=== PATIENT | female | born 1965 | race Caucasian/White ===

== ENCOUNTER 2017-09-26 11:23 | Inpatient (IN) | payer BC ==
[2017-08-29 14:42] VITALS: BMI 25.0
[2017-08-29 14:59] LABS: BASO % 0.5 %; BASO ABS # 0.03 K/uL (0-0.2); EOS % 0.6 %; EOS ABS # 0.04 K/uL (0-0.5); HEMATOCRIT 42.2 % (37-47); HEMOGLOBIN 14.7 g/dL (12.0-16.0); IG# 0.01 K/uL (0.00-0.02); LYMPH % 28.2 %; LYMPH ABS # 1.85 K/uL (1.2-3.4); MEAN CELL VOLUME 104.2 fL (80-100); MEAN CORPUSCULAR HEMOGLOBIN 36.3 pg (25-34); MEAN CORPUSCULAR HGB CONC 34.8 g/dl (32-36); MEAN PLATELET VOLUME 9.3 fL (7.4-10.4); MONO % 9.9 %; MONO ABS # 0.65 K/uL (0.11-0.59); NEUT % 60.6 %; NEUT ABS # 3.98 K/uL (1.4-6.5); PLATELET COUNT 263 K/uL (130-400); RED CELL DISTRIBUTION WIDTH CV 14.8 % (11.5-14.5); RED CELL DISTRIBUTION WIDTH SD 56.3 fL (36.4-46.3); WHITE BLOOD COUNT 6.56 K/uL (4.8-10.8)
--- NOTE | 2017-08-29 15:34 | PAT Medication Instructions ---
Service Date Aug 29, 2017. Current Home Medication List Albuterol Hfa (Ventolin Hfa), 2 PUFFS INH Q6H PRN for PRN Betamethasone Dip Aug 0.05% (Diprolene 0.05%), 1 DOSE TOP PRN Cabergoline (Cabergoline), 0.5 TAB PO 2XWEEK Calcium Carbonate-Vitamin D (Calcium + D), 1 TAB PO BID Ergocalciferol (Vitamin D 01034 Unit), 50,000 UNIT PO WK Ferrous Sulfate (Kp Ferrous Sulfate), 1 TAB PO BID Levothyroxine Sodium (Levothyroxine Sodium), 1 TAB PO QAM Omeprazole (Prilosec), 40 MG PO QAM Tramadol (Ultram), 50 MG PO Q6H [Vitamin B12], 1 DOSE INJ MONTHLY Medication Instructions For Your Scheduled Surgery -Contact your prescriber for instructions for: Cabergoline (Cabergoline), 0.5 TAB PO 2XWEEK -Continue as directed: Ergocalciferol (Vitamin D 29311 Unit), 50,000 UNIT PO WK [Vitamin B12], 1 DOSE INJ MONTHLY - Hold the following medications 24 hours prior to surgery: Betamethasone Dip Aug 0.05% (Diprolene 0.05%), 1 DOSE TOP PRN - Hold the following medications the morning of surgery: Ferrous Sulfate ( Ferrous Sulfate), 1 TAB PO BID Calcium Carbonate-Vitamin D (Calcium + D), 1 TAB PO BID - Take the following medications the morning of surgery with a sip of water: Levothyroxine Sodium (Levothyroxine Sodium), 1 TAB PO QAM Omeprazole (Prilosec), 40 MG PO QAM Albuterol Hfa (Ventolin Hfa), 2 PUFFS INH Q6H PRN for PRN (if needed, and bring it with you the morning of the surgery) Tramadol (Ultram), 50 MG PO Q6H (if needed can be taken up to four hours before surgery) - Take the following medications as scheduled the night before surgery: Calcium Carbonate-Vitamin D (Calcium + D), 1 TAB PO BID Tramadol (Ultram), 50 MG PO Q6H Albuterol Hfa (Ventolin Hfa), 2 PUFFS INH Q6H PRN for PRN (if needed) Ferrous Sulfate (Kp Ferrous Sulfate), 1 TAB PO BID If you have any questions please call us at [phone] or [phone] or [phone]
--- NOTE | 2017-08-29 15:55 | DIAGNOSTIC IMAGING REPORT ---
CHEST 2 VIEWS ROUTINE HISTORY: 52 years-old Female PAT preoperative exam. No acute chest complaints. COMPARISON: None available TECHNIQUE: PA and lateral views of the chest FINDINGS: Cardiomediastinal and hilar silhouettes are within normal limits. There is no pneumothorax, pleural effusion, focal airspace consolidation or overt pulmonary edema. The bones of the chest appear grossly intact. IMPRESSION: No acute process. The above report was generated using voice recognition software. It may contain grammatical, syntax or spelling errors. Electronically signed by: Ed Sullivan M.D. 08/29/2017 3:53 PM Dictated Date/Time: 08/29/2017 3:52 PM
[2017-08-29 16:02] LABS: CALCIUM 8.9 mg/dl (8.5-10.1); CREATININE 0.55 mg/dl (0.60-1.20)
[~2017-09-26] VITALS: Ht 160 cm; Wt 66.3 kg
[2017-09-26] VITALS (9 sets, daily range): BP systolic 123–164; BP diastolic 78–114; PULSE 55–96; TEMP 36.5–36.8; O2SAT 93–100; Ht 160 cm; Wt 66.3 kg
[~2017-09-26 11:23] MED LIST: ATROPINE SULFATE 0.1 MG/ML 5ML SYR IV PRN; AUG0.05O4 TOP; CABE0.5T PO; CALC600T9 PO; CEFAZOLIN 1000MG IV PUSH 7.5 ML IV SCH; ERGO500037 PO; EpHEDrine SULFATE INJ 50 MG/ML AMP IV PRN; FENTANYL CITRATE INJ 50 MCG/1 ML 2 ML VIAL IV PRN; FERR1TAB13 PO; HYDROmorphone INJ 1 MG/ML SYR IV PRN; LABETALOL HCL IV 5 MG/ML 20ML IV PRN; LACTATED RINGER'S 1000ML 1,000 ML IV SCH; LEVO50TA6 PO; MEPERIDINE HCL 25 MG/ML CARP IV PRN; ONDANSETRON INJ 2 MG/ML 2 ML VIAL IV PRN; PRLSR20 PO; TRAM-10 PO; VITAMIN B12 INJ; VNTHFA/IN INH
--- NOTE | 2017-09-26 11:28 | History & Physical Bridge Note ---
H&P Re-Evaluation Bridge Note: I have examined the patient, reviewed the History & Physical and in the interval since the performance of the History & Physical I have noted the following changes of clinical significance: No changes noted
--- NOTE | 2017-09-26 11:29 | History and Physical ---
History & Physical Date Sep 26, 2017. Chief Complaint Back and leg pain History of Present Illness The patient is a 52 year old female with complaints of back and leg pain Additional History Hepatic Disease: No Endocrine Disorder: No Kidney Disease: No Hypertension: No Heart Disease: No Bleeding Tendencies: No Infectious Diseases: No Allergies Coded Allergies: Adhesives (Verified Allergy, Unknown, RED IRRITATION TO SKIN WITH TAPE, 07/04) NO KNOWN DRUG ALLERGIES (Verified Allergy, Unknown, NONE, 08/29/17) Home Medications Scheduled Betamethasone Dip Aug 0.05% (Diprolene 0.05%), 1 DOSE TOP PRN Cabergoline (Cabergoline), 0.5 TAB PO 2XWEEK Calcium Carbonate-Vitamin D (Calcium + D), 1 TAB PO BID Ergocalciferol (Vitamin D 28250 Unit), 50,000 UNIT PO WK Ferrous Sulfate (Kp Ferrous Sulfate), 1 TAB PO BID Levothyroxine Sodium (Levothyroxine Sodium), 1 TAB PO QAM Omeprazole (Prilosec), 40 MG PO QAM Tramadol (Ultram), 50 MG PO Q6H [Vitamin B12], 1 DOSE INJ MONTHLY Scheduled PRN Albuterol Hfa (Ventolin Hfa), 2 PUFFS INH Q6H PRN for PRN Physical Examination Skin: warm/dry, no rash Eyes: normal inspection, EOMI, sclerae normal ENT: normal ENT inspection, pharynx normal Head: normocephalic, atraumatic Neck: supple, no adenopathy, trachea midline Respiratory/Chest: lungs clear, normal breath sounds, no respiratory distress Cardiovascular: regular rate, rhythm, no edema, no murmur Abdomen / GI: normal bowel sounds, non tender Back: normal inspection Extremities: normal inspection, normal range of motion Neurologic/Psych: no motor/sensory deficits, alert, normal reflexes, oriented x 3 Diagnosis Lumbar spinal stenosis with spondylolisthesis Plan of Treatment Lumbar decompression and fusion L5-S1 possible L4-5
[2017-09-26] MEDS ORDERED: BACITRACIN 50000 UNIT VIAL ONE (11:46)
[2017-09-26] MEDS ORDERED: BUPIVACAINE/EPINEPHRINE 0.5% MPF 1:200,000 30 ML VIAL ONE (11:46)
[2017-09-26] MEDS ORDERED: LORA-741 PO (11:47)
[2017-09-26] MEDS ORDERED: MIDAZOLAM HCL 1 MG/ML 2ML VIAL ONE (11:49)
[2017-09-26] MEDS ORDERED: FENTANYL CITRATE INJ 50 MCG/1 ML 2 ML VIAL ONE ×3 (11:49→13:34)
[2017-09-26] MEDS ORDERED: HYDROmorphone INJ 2 MG/ML SYR/VIAL ONE ×2 (12:39→13:36)
[2017-09-26] MEDS ORDERED: ONDANSETRON INJ 2 MG/ML 2 ML VIAL ONE (12:56)
[2017-09-26] MEDS ORDERED: PROPOFOL IV EMULSION 10 MG/ML 20 ML VIAL IV ONE ×2 (12:56→13:40)
[2017-09-26] MEDS ORDERED: METOPROLOL TARTRATE 1 MG/ML VIAL ONE (12:56)
[2017-09-26] MEDS ORDERED: ESMOLOL HCL 10 MG/ML 10 ML VIAL ONE (12:56)
[2017-09-26] MEDS ORDERED: LIDOCAINE HCL 2% 2 ML VIAL (20MG/ML) ONE (12:56)
[2017-09-26] MEDS ORDERED: DEXAMETHASONE SOD INJ 4 MG/ML VIAL ONE (12:56)
[2017-09-26] MEDS ORDERED: ROCURONIUM BROMIDE 10 MG/ML 5 ML VIAL IV ONE (12:56)
[2017-09-26] MEDS ORDERED: PHENYLEPHRINE 100MCG/ML 5ML SYR ONE (12:56)
[2017-09-26] MEDS ORDERED: GLYCOPYRROLATE INJ 0.2 MG/ML VIAL ONE (13:39)
[2017-09-26] MEDS ORDERED: NEOSTIGMINE METHYLSULFATE 1 MG/ML 10ML VIAL ONE (13:39)
[2017-09-26] MEDS ORDERED: KETOROLAC TROMETHAMINE 30 MG/ML VIAL ONE (13:40)
[2017-09-26] MEDS ORDERED: FLOSEAL HEMOSTATIC MATRIX 10ML TOP ONE (13:43)
[2017-09-26] MEDS: SODIUM CHLORIDE 0.9% 1000ML 1,000 ML IV SCH ×2 (13:53→20:14)
[2017-09-26] MEDS ORDERED: SODIUM CHLORIDE 0.9% 1000ML 1,000 ML IV SCH (13:53)
--- NOTE | 2017-09-26 13:53 | [facility] Operative Report ---
Operative Report Operative Date Sep 26, 2017. Pre-Operative Diagnosis Lumbar spinal stenosis with spondylolisthesis Post-Operative Diagnosis Same Procedure(s) Performed 1. Decompression medial facetectomies foraminotomies L4-5 L5-S1. #2 posterior spinal fusion L5-S1. #3 placement of posterior instrumentation L5-S1. #4 interbody fusion L5-S1. #5 placed a peek cage 10 x 22 mm at L5-S1. #6 placement of locally harvested morselized allograft in the posterior lateral gutters. #7 placement InFUSE collagen sponge, with master graft and the posterior lateral gutters and ostial amp in the interbody space. Surgeon Health Science Specialist Surgeon(s) Maria Teresa Santamaria PA-C Estimated Blood Loss 150ml Findings Severe spinal stenosis with spondylolisthesis Specimens None per surgeon Anesthesia Type General Description of Procedure Patient was met with preoperatively case discussed all questions addressed. After informed consent obtained patient was taken to the operative suite underwent intubation and placed in a prone position on the Pepe table on top of the Cristhian frame. All bony prominences were well-padded eyes inspected to ensure no external pressure placed upon them. At this point the lumbar spine was prepped and draped in the normal sterile fashion. Sharp dissection with the assistance of Bovie cautery I was performed down to and exposing the lamina and transverse processes of L5 and sacral ala bilaterally. Obvious pars defect and spina bifida occulta noted. Complete laminectomies were performed including bilateral mucosectomy foraminotomies partial laminectomy of L4. This addressed severe lateral recess and foraminal disease. Pedicle screws were then placed in L5-S1 levels bilaterally with the assistance of fluoroscopy and process nidhi placed. Through a trans-foraminal approach on the right complete discectomy L5-S1 is performed endplates curetted to subcortical bleeding bone and a 10 x 22 mm peek cage filled with ostia bone graft tapped in position. Rods were then compressed locked into final position bilaterally. The transverse processes of L5 and sacroiliac burred to subcortical bleeding bone. InFUSE collagen sponge mesh graft and locally harvested morselized autograft was placed in the posterior gutters. A 15 round JON drain inserted. Incision was then closed with 1 Vicryl in the fascia 2-0 Vicryl subcutaneous and the and 4-0 Monocryl for fashion closure Steri-Strips sterile dressings placed. Patient will continue to PACU in a stable condition. Please note Maria Teresa Barnes was present throughout the entire procedure involved in patient positioning complex portions of the surgery and for skin closure. I attest to the content of the Intraoperative Record and any orders documented therein. Any exceptions are noted below.
[2017-09-26] MEDS ORDERED: BISACODYL 10 MG SUPP PR PRN (14:00)
[2017-09-26] MEDS ORDERED: ONDANSETRON INJ 2 MG/ML 2 ML VIAL IV PRN (14:00)
[2017-09-26] MEDS ORDERED: LORAZEPAM INJ 0.5 MG in SYRINGE 0 ML IV PRN (14:00)
[2017-09-26] MEDS ORDERED: NALOXONE HCL 0.4 MG/1 ML VIAL/CARP IV PRN ×2 (14:00)
[2017-09-26] MEDS ORDERED: MAGNESIUM HYDROXIDE SUSP 30 ML UDC PO PRN (14:00)
[2017-09-26] MEDS ORDERED: SOD PHOSPHATE/SOD BIPHOSPHATE ENEMA 132 ML BTL PR PRN (14:00)
[2017-09-26] MEDS ORDERED: FAMOTIDINE 20 MG TAB PO PRN (14:00)
[2017-09-26] MEDS ORDERED: LORAZEPAM 0.5 MG TAB PO SCH (14:00)
[2017-09-26] MEDS ORDERED: METOCLOPRAMIDE HCL INJ 5 MG/ML 2 ML VIAL IV PRN (14:00)
[2017-09-26] MEDS ORDERED: hydrOXYzine HCL 25 MG TAB PO PRN (14:00)
[2017-09-26] MEDS ORDERED: TRAMADOL HCL 50 MG TAB PO SCH (14:00)
[2017-09-26] MEDS ORDERED: DO NOT ADMINISTER PNEUMOCOCCAL VACCINE PRN (14:00)
[2017-09-26] MEDS ORDERED: PROMETHAZINE HCL INJ 12.5 MG in SODIUM CHLORIDE 0.9% 50ML 50 ML IV PRN (14:00)
[2017-09-26] MEDS ORDERED: ACETAMINOPHEN IV 100 ML IV PRN (14:00)
[2017-09-26] MEDS ORDERED: ALBUTEROL HFA 8 GM INHALER INH PRN (14:00)
[2017-09-26] MEDS ORDERED: DO NOT ADMINISTER FLU VACCINE PRN (14:00)
[2017-09-26] MEDS ORDERED: ALUMINUM/MAGNESIUM SUSP 30 ML UDC PO PRN (14:00)
[2017-09-26] MEDS ORDERED: ACETAMINOPHEN 500 MG TAB PO PRN (14:00)
[2017-09-26] MEDS ORDERED: HYDROmorphone INJ 0.5 MG/0.5 ML SYR IV PRN ×2 (14:00→15:45)
--- NOTE | 2017-09-26 14:19 | DIAGNOSTIC IMAGING REPORT ---
LUMBAR SPINE 2 OR 3 VIEW CLINICAL HISTORY: L5-S1 fusion. COMPARISON STUDY: No previous studies for comparison. Fluoroscopy time: 24 seconds. FINDINGS: 2 fluoroscopic images demonstrate an L5-S1 discectomy with interbody spacer placement. There is mild anterolisthesis of L5 on S1. There is a posterior decompression with bilateral pedicle screws at the L5 and S1 levels. IMPRESSION: Fluoroscopic images demonstrating an L5-S1 discectomy and bilateral pedicle screw fusion. Electronically signed by: Dell Cox M.D. 09/26/2017 2:17 PM Dictated Date/Time: 09/26/2017 2:17 PM
[2017-09-26] MEDS ORDERED: HYDROmorphone HCL 0.5MG/ML 50 ML CASSETTE ONE (14:20)
--- NOTE | 2017-09-26 14:36 | Anesthesiology Progress Note ---
Anesthesia Post Op Note Date & Time Sep 26, 2017 at 14:35 Vital Signs Pain Intensity: 1 Vital Signs Past 12 Hours Date Time Temp Pulse Resp B/P (MAP) Pulse Ox O2 Delivery O2 Flow Rate FiO2 09/26/17 14:26 70 18 98 09/26/17 14:26 70 18 09/26/17 14:22 155/83 09/26/17 14:21 80 17 100 09/26/17 14:21 80 17 09/26/17 14:16 65 12 141/84 100 09/26/17 14:16 65 12 09/26/17 14:11 63 11 146/86 100 09/26/17 14:11 63 11 09/26/17 14:06 81 23 145/99 100 09/26/17 14:06 82 23 09/26/17 14:05 124/89 09/26/17 14:01 36.7 86 16 124/81 96 Oxymask 7 09/26/17 11:40 36.7 96 20 161/112 95 Room Air 164/114 Notes Mental Status: alert / awake / arousable, participated in evaluation Pt Amnestic to Procedure: Yes Nausea / Vomiting: adequately controlled Pain: adequately controlled Airway Patency, RR, SpO2: stable & adequate BP & HR: stable & adequate Hydration State: stable & adequate Anesthetic Complications: no major complications apparent
[2017-09-26] MEDS: HYDROmorphone HCL 0.5MG/ML 50 ML CASSETTE IV PRN ×2 (15:18→23:02)
[2017-09-26] MEDS ORDERED: HYDROmorphone INJ 1 MG/ML SYR IV PRN (15:45)
[2017-09-26] MEDS: CEFAZOLIN IV 1,000 MG in SYRINGE 0 ML IV SCH (20:13)
[2017-09-26] MEDS: DOCUSATE SODIUM/SENNA 50/8.6MG TAB PO SCH (20:54)
[2017-09-27] MEDS: SODIUM CHLORIDE 0.9% 1000ML 1,000 ML IV SCH (02:38)
[2017-09-27 03:11] VITALS: BP 137/82; PULSE 61; TEMP 36.9; O2SAT 94
[2017-09-27] MEDS: CEFAZOLIN IV 1,000 MG in SYRINGE 0 ML IV SCH (03:44)
[2017-09-27] MEDS: LORAZEPAM 0.5 MG TAB PO PRN ×2 (05:57→18:37)
[2017-09-27] MEDS: LEVOTHYROXINE 50 MCG TAB PO SCH (05:59)
[2017-09-27] MEDS ORDERED: DC PCA ONE (06:00)
[2017-09-27] MEDS ORDERED: NURSING VERBAL MED ORDER ONE (06:15)
[2017-09-27 06:19] LABS: BASO % 0.1 %; BASO ABS # 0.01 K/uL (0-0.2); HEMATOCRIT 35.3 % (37-47); IG# 0.01 K/uL (0.00-0.02); LYMPH ABS # 1.78 K/uL (1.2-3.4); MEAN CORPUSCULAR HEMOGLOBIN 36.4 pg (25-34); MEAN PLATELET VOLUME 9.5 fL (7.4-10.4); MONO % 9.4 %; MONO ABS # 0.98 K/uL (0.11-0.59); NEUT % 73.4 %; NEUT ABS # 7.66 K/uL (1.4-6.5); PLATELET COUNT 188 K/uL (130-400); RED CELL DISTRIBUTION WIDTH SD 58.5 fL (36.4-46.3); WHITE BLOOD COUNT 10.44 K/uL (4.8-10.8)
[2017-09-27 06:59] LABS: CALCIUM 8.1 mg/dl (8.5-10.1); CREATININE 0.5 mg/dl (0.60-1.20); POTASSIUM 3.7 mmol/L (3.5-5.1)
[2017-09-27 07:09] VITALS: BP 132/82; PULSE 83; TEMP 37; O2SAT 93
[2017-09-27] MEDS ORDERED: RXC5 PO (07:36)
--- NOTE | 2017-09-27 07:37 | Discharge Instructions ---
Discharge Instructions Date of Service Sep 27, 2017. Admission Reason for Admission: Lumbar Spinal Stenosis Discharge Discharge Diagnosis / Problem: lumbar stenosis Discharge Goals Goal(s): Improve function Activity Recommendations Activity Limitations: per Instructions/Follow-up section . Instructions / Follow-Up Instructions / Follow-Up ACTIVITY RECOMMENDATIONS: SELF CARE INSTRUCTIONS AFTER THORACIC/LUMBAR FUSIONS 1. You may walk to your tolerance. It is good exercise for your legs and back. Expect some back and intermittent leg aches and pains. 2. You may perform "counter-top" level activities (make a sandwich, karen with a project, etc.). 3. No bending or lifting of more than 10 pounds or back twisting of any nature (roll like a log when turning in bed). 4. You may ride in a car for 20-30 minutes at a time. No driving until after your first visit with your doctor. 5. Frequent changes of position and restricting sitting to 30 minutes at a time will help limit the amount of back spasms and stiffness you may experience. 6. You may discontinue the use of ambulatory aids (cane, crutches, etc.) once your strength and confidence allow. 7. You may hair spinner the shower and let water strike your incision when you arrive home at least once daily. Do not take a tub bath, sit in a hot tub or go into a swimming pool until after your first recheck in the office. SPECIAL CARE INSTRUCTIONS: VERY IMPORTANT TO READ AND REVIEW A. Your surgical incision has been closed with a cosmetic suture under the skin that will dissolve in about 6 weeks. In 14 days, you can use a pair of clean scissors and cut the suture that is left outside of the skin at the ends of your incision. 1. The small skin tapes can be removed 7 days after surgery if they have not fallen off by that point. 2. You may keep the wound open to air as much as possible to promote healing after post-op day number 5 unless told otherwise by your doctor. 3. If you think the wound looks like it is becoming infected (redness or worsening drainage) and/or you are experiencing fever, chill or worsening back pain and muscle spasms, contact the office so that we may evaluate you as soon as possible. B. Complications are uncommon, but please contact us if you have any signs or symptoms of: 1. wound infection (fever higher than 102.5 degrees F, redness, separation of wound, drainage, or increasing pain from the incision) 2. blood clots in legs (pain, swelling, redness and warmth in legs) 3. urinary tract infection (fever higher than 102.5 degrees F, burning upon urination or increased frequency of urination) 4. nerve problems (inability to walk on your toes or heels, numbness, loss of bowel or bladder control) 5. any other symptoms that concern you C. Please call the office at if you have any concerns or questions about your operation or recovery. D. No smoking! Smoking drastically decreases the chance of a solid fusion. E. Do not take any anti-inflammatory medications (Indocin, Advil, Motrin, Aspirin, Naprosyn, etc.) as these may inhibit the chance of a solid fusion. Tylenol is okay to take for pain. MANAGING PAIN AFTER SPINAL SURGERY 1. Narcotic medication is intended for short-term use and will be provided for surgical pain. Surgical pain usually lasts for a period of 4-6 weeks. Narcotic medication includes Percocet, Vicodin, Darvocet, Tylenol #3 or Lortab. 2. Longer-term pain is more appropriately treated with non-narcotic medication such as Tylenol ES. 3. Muscle spasm is not appropriately treated with narcotics. Muscle relaxers such as Soma, Flexeril or Skelaxin can be used along with Tylenol ES. 4. Remember that we all live with some "aches and pains". This is not unusual or uncommon after an injury or as we get older. a. Back pain is expected and may include muscle spasms for 4 to 6 weeks after surgery. The pain should gradually improve. If the pain worsens for no apparent reason, please contact the office. b. Intermittent leg pain may also be experienced and should not be concerned about unless it worsens for no apparent reason. If so, please contact the office. 5. We will provide appropriate medication within the normal guidelines of their prescribed use. We will also be very cautious and aware of potential abuse and extended duration of patients' medication needs. a. Pain medications are for your comfort and to assist with sleep and rest so that the tissue can heal. They are not provided in order to return to normal activity and should not be used through the day. To do so or worsening pain at night can result from ongoing tissue damage and development of tolerance to the prescribed medicine. 6. Please allow 2-3 days to process refills. Prescriptions will not be mailed but must be picked up at the office. FOLLOW UP VISIT: Keep your scheduled follow-up appointment. Any questions, please call the office at . Current Hospital Diet Patient's current hospital diet: Regular Diet Discharge Diet Recommended Diet: Regular Diet Procedures Procedures Performed: 1. Decompression medial facetectomies foraminotomies L4-5 L5-S1. #2 posterior spinal fusion L5-S1. #3 placement of posterior instrumentation L5-S1. #4 interbody fusion L5-S1. #5 placed a peek cage 10 x 22 mm at L5-S1. #6 placement of locally harvested morselized allograft in the posterior lateral gutters. #7 placement InFUSE collagen sponge, with master graft and the posterior lateral gutters and ostial amp in the interbody space. Pending Studies Studies pending at discharge: no Medical Emergencies . Who to Call and When: Medical Emergencies: If at any time you feel your situation is an emergency, please call 911 immediately. . Non-Emergent Contact Non-Emergency issues call your: Primary Care Provider . "Provider Documentation" section prepared by Damon Rae. .
[2017-09-27] MEDS: PANTOprazole SOD 40 MG TAB PO SCH (07:50)
[2017-09-27] MEDS: OXYCODONE HCL IR 5 MG TAB (IMMEDIATE RELEASE) PO PRN ×3 (07:51→20:30)
--- NOTE | 2017-09-27 07:54 | Anesthesiology Progress Note ---
Anesthesia Post Op Note Date & Time Sep 27, 2017 at 07:53 Vital Signs Pain Intensity: 5 Vital Signs Past 12 Hours Date Time Temp Pulse Resp B/P (MAP) Pulse Ox O2 Delivery O2 Flow Rate FiO2 09/27/17 07:09 37.0 83 18 132/82 (99) 93 Room Air 09/27/17 03:11 36.9 61 16 137/82 (100) 94 Room Air 09/26/17 23:30 36.7 63 16 146/78 (100) 93 Room Air 09/26/17 23:15 Room Air 09/26/17 20:24 36.6 70 16 138/84 (102) 95 Room Air Notes Mental Status: alert / awake / arousable Pt Amnestic to Procedure: Yes Nausea / Vomiting: adequately controlled Pain: improving with treatment Airway Patency, RR, SpO2: stable & adequate BP & HR: stable & adequate Hydration State: stable & adequate Anesthetic Complications: no major complications apparent
[2017-09-27 10:26] VITALS: BP 126/83; PULSE 104; O2SAT 94
[2017-09-27 10:45] VITALS: BP 125/87; PULSE 83; TEMP 37; O2SAT 93
--- NOTE | 2017-09-27 11:43 | Progress Note ---
Progress Note Date of Service Sep 27, 2017. Progress Note Patient's leg pain is markedly improved. Her back pain is controlled. Vital signs are stable. JON drain decreasing appropriately. Assessment status post lumbar decompression fusion. Plan at this time will continue physical therapy monitor her JON output consider discharge home tomorrow or .
[2017-09-27] MEDS: NICOTINE 21 MG/24 HR TDSY TD SCH (12:39)
[2017-09-27 14:57] VITALS: BP 139/91; PULSE 75; TEMP 36.8; O2SAT 95
[2017-09-27] MEDS: KETOROLAC TROMETHAMINE 30 MG/ML VIAL IV PRN ×2 (15:14→23:16)
[2017-09-27] MEDS: DOCUSATE SODIUM/SENNA 50/8.6MG TAB PO SCH (20:48)
[2017-09-27 22:54] VITALS: BP 132/85; PULSE 78; TEMP 36.9; O2SAT 95
[2017-09-28] MEDS: POLYETHYLENE (MIRALAX) 17 GM PACK PO SCH ×2 (05:59→12:00)
[2017-09-28] MEDS: OXYCODONE HCL IR 5 MG TAB (IMMEDIATE RELEASE) PO PRN ×2 (05:59→13:13)
[2017-09-28] MEDS: LEVOTHYROXINE 50 MCG TAB PO SCH (05:59)
[2017-09-28 06:29] VITALS: BP 122/71; PULSE 73; TEMP 37; O2SAT 92
[2017-09-28] MEDS: NICOTINE 21 MG/24 HR TDSY TD SCH (07:18)
[2017-09-28] MEDS: PANTOprazole SOD 40 MG TAB PO SCH (07:18)
[2017-09-28] MEDS: KETOROLAC TROMETHAMINE 30 MG/ML VIAL IV PRN (07:19)
[2017-09-28 11:03] VITALS: BP 122/71; PULSE 73; TEMP 37; O2SAT 92
--- NOTE | 2017-09-28 16:03 | Discharge Summary ---
Orthopedic Discharge Summary Admission Date/Reason Sep 26, 2017 at 11:25 Lumbar Spinal Stenosis. Discharge Date/Disposition Sep 28, 2017 Home Diagnosis Principal Diagnosis: Lumbar spinal stenosis Admission Physical Exam As per Admitting History & Physical. Hospital Course Patient underwent lumbar decompression fusion tolerated this well was taken to the orthopedic floor possibly. Postop day #1 she was opening the door progressed nicely through postop day #2 was subsequently discharged home. Discharge orders and instructions found on the chart for further review. Discharge Instructions Please refer to the electronic Patient Visit Report (Discharge Instructions) for additional information.
== END 2017-09-28 13:35 | disposition home or self-care (01) | DRG 455 ==
LOC: C.ACU 11:23 → C.3E 11:25 → ENRESERV 14:16
PROVIDERS: ADMIT Orthopaedic Surgery Orthopaedic Surgery of the Spine; ATTEND Orthopaedic Surgery Orthopaedic Surgery of the Spine
PROC: 0SG30AJ Fusion of Lumbosacral Joint with Interbody Fusion Device, Posterior Approach, Anterior Column, Open Approach (ICD-10-PCS; principal; 2017-09-26 12:45)
PROC: 0SG3071 Fusion of Lumbosacral Joint with Autologous Tissue Substitute, Posterior Approach, Posterior Column, Open Approach (ICD-10-PCS; principal; 2017-09-26 12:45)
PROC: 0ST40ZZ Resection of Lumbosacral Disc, Open Approach (ICD-10-PCS; principal; 2017-09-26 12:45)
PROC: 00NY0ZZ Release Lumbar Spinal Cord, Open Approach (ICD-10-PCS; principal; 2017-09-26 12:45)
DX: M48.061 Spinal stenosis, lumbar region without neurogenic claudication (principal); M43.10 Spondylolisthesis, site unspecified; Z79.899 Other long term (current) drug therapy